=== PATIENT | female | born 1980 | race Caucasian/White ===

== ENCOUNTER → 2016-10-22 | Outpatient (CLI) | payer BC ==
--- NOTE | 2016-10-22 09:26 | DIAGNOSTIC IMAGING REPORT ---
LEFT AXILLARY ULTRASOUND CLINICAL HISTORY: Left axillary pain. COMPARISON STUDY: Left breast/axillary ultrasound 08/05/2016. FINDINGS: There again noted multiple left axillary lymph nodes. The majority of these demonstrate a normal fatty hilum. The dominant lymph node measures 2.2 x 0.7 x 0.8 cm. These lymph nodes are stable to slightly enlarged compared to the prior study. There is also an 11 x 7 x 5 mm hypoechoic nodule/lymph node within the left axilla which demonstrates a biopsy clip. This is overall similar in appearance compared to the prior study. No fluid collections identified within the left axilla. IMPRESSION: 1. Multiple left axillary lymph nodes are again noted. This includes the 11 x 7 x 5 mm hypoechoic nodule/lymph node which has been previously biopsied. The majority of the left axillary lymph nodes are stable to slightly increased in size compared to the prior ultrasound. 2. No fluid collections identified in the left axilla. 3. A 1-2 month ultrasound follow-up at the breast care center is recommended to ensure stability. Electronically signed by: Joe Gates M.D. 10/22/2016 9:24 AM Dictated Date/Time: 10/22/2016 9:19 AM
== END | disposition home or self-care (01) ==
LOC: C.ULTR 08:43
PROVIDERS: ATTEND Family Medicine
DX: M79.622 Pain in left upper arm (principal)

== ENCOUNTER → 2016-11-28 | Outpatient (CLI) | payer BC ==
--- NOTE | 2016-12-01 13:49 | MAMMOGRAPHY REPORT ---
ULTRASOUND OF LEFT BREAST: 11/28/2016 CLINICAL HISTORY: The patient underwent an ultrasound-guided core needle biopsy in the left axilla N 2015 a with pathology yielding a benign lymph node. The patient had left axillary pain arou september, which has since resolved. She had an ultrasound in the emergency Department, for which a short interval follow-up ultrasound was recommended. COMPARISON: Comparison is made to exams dated: 08/20/2016 ultrasound biopsy, 08/05/2016 ultrasound, 07/09/2016 mammogram - [facility], 06/19/2015 ultrasound, and 06/13/2015 mammogram. TECHNIQUE: Real-time targeted ultrasound of the left axilla was performed. FINDINGS: Real-time, high resolution targeted ultrasound was performed of the left axilla. There is a round h ypoechoic circumscribed mass with a biopsy marker clip seen within it, consistent with the previousl y biopsied benign lymph node. This measures 7 x 5 x 6 mm, and is stable to decreased compared to July 2016 exam where the mass measured 9 x 6 mm. Other morphologically normal left axillary l ymph nodes were seen on ultrasound, which are a normal oval shape with normal fatty annette and normal peripheral cortices. No suspicious masses or other suspicious sonographic abnormalities are evident . No suspicious adenopathy is evident. IMPRESSION: ACR BI-RADS CATEGORY 2: BENIGN The previously biopsied left axillary lymph node is stable to decreased in size compared to prior ex ams. No suspicious adenopathy is evident in the left axilla. There is no sonographic evidence of ma lignancy. Recommend clinical follow-up for left axillary pain which has resolved. Also recommend r outine bilateral screening mammograms which are due June 2017. The patient was verbally notified of the results. Yaritza Olivares M.D. ah/:11/28/2016 08:20:52 Attending Technologist: Ariana SANTOS(R)(M), [facility] Construction Project Coordinator: Yaritza Olivares MD, [facility] letter sent: Normal 1/2 BI-RADS Code: ACR BI-RADS Category 2: Benign
== END | disposition home or self-care (01) ==
LOC: C.MAMM 07:51
PROVIDERS: ATTEND Family Medicine
DX: M79.622 Pain in left upper arm (principal)

== ENCOUNTER → 2017-04-09 | Outpatient (CLI) | payer BC ==
--- NOTE | 2017-04-09 12:36 | DIAGNOSTIC IMAGING REPORT ---
MRI OF THE BRAIN WITHOUT CONTRAST CLINICAL HISTORY: M79.629 DIZZINESS COMPARISON STUDY: None. FINDINGS: Sagittal T1, axial diffusion, proton density and T2 weighted axial, coronal FLAIR, and axial T1-weighted images were acquired. No intra or extra-axial mass lesions are visualized There is an equivocal very subtle 2.5 mm focus of restricted water diffusion within the left basal ganglia. There is no evidence of ventricular dilatation. Proton density T2-weighted and FLAIR images reveal a tiny focus of increased FLAIR signal within the left frontal white matter. There are no abnormal flow voids. IMPRESSION: 1. No evidence of intracranial mass 2. Tiny focus of nonspecific increased FLAIR signal within the left frontal white matter 3. Equivocal 2.5 mm focus of restricted water diffusion within the left basal ganglia Electronically signed by: Flakito Schulz M.D. 04/09/2017 12:35 PM Dictated Date/Time: 04/09/2017 12:29 PM
== END | disposition home or self-care (01) ==
LOC: C.MRIBC 11:48
PROVIDERS: ATTEND Family Medicine
DX: R42 Dizziness and giddiness (principal)

== ENCOUNTER → 2017-06-02 | Outpatient (CLI) | payer BC | END | disposition home or self-care (01) | LOC: C.PATHSPEC 14:15 | PROVIDERS: ATTEND Obstetrics & Gynecology | DX: N84.1 Polyp of cervix uteri (principal) ==

== ENCOUNTER → 2017-07-22 | Outpatient (CLI) | payer BC ==
[~2017-07-22] MED LIST: BIOT1TAB7 PO; MULT-506 PO
--- NOTE | 2017-07-23 14:34 | MAMMOGRAPHY REPORT ---
BILATERAL DIGITAL SCREENING MAMMOGRAM TOMOSYNTHESIS WITH CAD: 07/22/2017 CLINICAL HISTORY: Routine screening. TECHNIQUE: Breast tomosynthesis in addition to standard 2D mammography was performed. Current study was also evaluated with a Computer Aided Detection (CAD) system. COMPARISON: Comparison is made to exams dated: 08/20/2016 ultrasound biopsy, 11/28/2016 ultrasound, mammogram - [facility], 06/19/2015 ultrasound, and 06/13/2015 mammogram. BREAST COMPOSITION: The tissue of both breasts is extremely dense, which lowers the sensitivity of m ammography. FINDINGS: No suspicious masses, calcifications, or areas of architectural distortion are noted in ei ther breast. There has been no significant interval change compared to prior exams. IMPRESSION: ACR BI-RADS CATEGORY 1: NEGATIVE There is no mammographic evidence of malignancy. A 1 year screening mammogram is recommended. The pa tient will receive written notification of the results. Approximately 10% of breast cancers are not detected with mammography. A negative mammographic report should not delay biopsy if a clinically suggestive mass is present. Yaritza Olivares M.D. ah/:07/22/2017 16:44:13 Artistic Associate: Ariana SANTOS(R)(M), [facility] letter sent: Normal 1/2 BI-RADS Code: ACR BI-RADS Category 1: Negative
== END | disposition home or self-care (01) ==
LOC: C.MAMM 07:45
PROVIDERS: ATTEND Family Medicine
DX: Z12.31 Encounter for screening mammogram for malignant neoplasm of breast (principal)

== ENCOUNTER → 2017-08-11 | Outpatient (CLI) | payer BC ==
[~2017-08-11] MED LIST changes: +HYDR-5688 PO
--- NOTE | 2017-08-11 15:11 | MAMMOGRAPHY REPORT ---
ULTRASOUND OF BOTH BREASTS: 08/11/2017 CLINICAL HISTORY: Patient has extremely dense breast parenchyma and presents for additional whole jono ast ultrasound screening. COMPARISON: Comparison is made to exams dated: 07/22/2017 mammogram, 11/28/2016 ultrasound, 08/20/2016 ultrasound biopsy, 08/05/2016 ultrasound, 07/09/2016 mammogram - [facility], and ultrasound. FINDINGS: Real-time high-resolution sonographic evaluation was performed through each breast includi ng the retroareolar aspect of the breast as well as the right and left axilla. There are several sca ttered morphologically abnormal lymph nodes identified within each axilla. No focally enlarged lymph node or suspicious lymphadenopathy is identified. Within the breasts, the parenchymal echotexture i s homogeneousdense. No discrete solid or cystic mass is identified. IMPRESSION: ACR BI-RADS CATEGORY 2: BENIGN 1. There is no sonographic evidence of malignancy in the breasts on whole breast screening ultrasoun d. No suspicious axillary adenopathy bilaterally. Continuation of annual screening tomosynthesis mammograms with possible additional whole breast scree elaine ultrasound is recommended. These results and recommendations were discussed with the patient at the time of the exam. Hui Avilez M.D. ay/:08/11/2017 10:19:54 Telecom Assistant: Cora DALLAS)(Manny), [facility] letter sent: Normal 1/2 BI-RADS Code: ACR BI-RADS Category 2: Benign
== END | disposition home or self-care (01) ==
LOC: C.MAMM 09:32
PROVIDERS: ATTEND Family Medicine
DX: R92.2 Inconclusive mammogram (principal)

== ENCOUNTER → 2017-08-14 | Day surgery (SDC) | payer BC ==
[2017-07-30 09:50] VITALS: Ht 167.6 cm; Wt 54.5 kg
[~2017-08-14] VITALS: Ht 167.6 cm; Wt 54.5 kg
[~2017-08-14] MED LIST changes: +ATROPINE SULFATE 0.1 MG/ML 5ML SYR IV PRN; +BUPIVACAINE 0.5 % 5 MG/1 ML MPF 30ML VIAL ONE; +CEFAZOLIN 2000MG IV PUSH 10 ML IV SCH; +DEXAMETHASONE SOD INJ 4 MG/ML VIAL ONE; +EpHEDrine SULFATE INJ 50 MG/ML AMP IV PRN; +FENTANYL CITRATE INJ 50 MCG/1 ML 2 ML VIAL IV PRN; +FENTANYL CITRATE INJ 50 MCG/1 ML 2 ML VIAL ONE; +HYDROCODONE/ACETAMOPHEN 5/325MG TAB PO PRN; +HYDROmorphone INJ 1 MG/ML SYR IV PRN; +LACTATED RINGER'S 1000ML 1,000 ML IV SCH; +LIDOCAINE HCL 2% 2 ML VIAL (20MG/ML) ONE; +MIDAZOLAM HCL 1 MG/ML 2ML VIAL ONE; +ONDANSETRON INJ 2 MG/ML 2 ML VIAL IV PRN; +ONDANSETRON INJ 2 MG/ML 2 ML VIAL ONE; +PROMETHAZINE HCL INJ 12.5 MG in SODIUM CHLORIDE 0.9% 50ML 50 ML IV PRN; +PROPOFOL IV EMULSION 10 MG/ML 20 ML VIAL IV ONE; +SODIUM CHLORIDE 0.9% 1000ML 1,000 ML IV SCH
--- NOTE | 2017-08-14 06:48 | History & Physical Bridge Note ---
H&P Re-Evaluation Bridge Note: I have examined the patient, reviewed the History & Physical and in the interval since the performance of the History & Physical I have noted the following changes of clinical significance: No changes noted
--- NOTE | 2017-08-14 07:02 | Discharge Instructions-SurgCtr ---
Discharge Instructions Date of Service Aug 14, 2017. Visit Reason for Visit: Umbilical Hernia Discharge Discharge Diagnosis / Problem: umbilical hernia Discharge Goals Goal(s): Decrease discomfort, Improve function, Improve disease control Activity Recommendations Activity Limitations: as noted below Lifting Limitations: no more than 25 pounds Exercise/Sports Limitations: until after follow-up appointment May Resume Sexual Activity: when tolerated Shower/Bathe: tomorrow SPECIAL CARE INSTRUCTIONS: * Cover incisions and change daily for comfort/drainage. * leave steri strips in place * May use ibuprofen for pain as tolerated. * Expect some swelling and bruising. Call your doctor if: * Temperature above 101 degrees * Pain not relieved by pain medicine ordered * There is increased drainage or redness from any incision * You have any unanswered questions or concerns [phone]. FOLLOW UP VISIT: If not already scheduled, please call the office for a follow-up visit. for 2 weeks- no sutures to remove OFFICE PHONE NUMBER: Dr. Lewis Office Anesthesia . Post Anesthesia Instructions: If you have had General Anesthesia or IV Sedation: * Do not drive today. * Resume driving when surgeon permits. * Do not make important decisions or sign legal documents today. * Call surgeon for: 1. Temperature elevations greater than 101 degrees F. 2. Uncontrollable pain. 3. Excessive bleeding. 4. Persistent nausea and vomiting. 5. Medication intolerance (nausea, vomiting or rash). * For nausea and vomiting use only clear liquids such as: tea, soda, bouillon until nausea subsides, then gradually increase diet as tolerated. * If you have any concerns or questions, call your surgeon's office. If physician is unavailable and it is an emergency, call 911 or go to the nearest emergency room. . Diet Recommendations Home Diet: resume previous diet Pending Studies Studies pending at discharge: no Medical Emergencies . Who to Call and When: Medical Emergencies: If at any time you feel your situation is an emergency, please call 911 immediately. . Non-Emergent Contact Non-Emergency issues call your: Primary Care Provider, Surgeon . . "Provider Documentation" section prepared by Martín Lewis. .
--- NOTE | 2017-08-14 07:43 | [facility] Operative Report ---
Operative Report Operative Date Aug 14, 2017. Pre-Operative Diagnosis Umbilical Hernia Post-Operative Diagnosis same as preop Procedure(s) Performed Umbilial Hernia Open Repair Surgeon Dr. Lewis Bioinformatics Developer Surgeon(s) GELA Hamlin Estimated Blood Loss 5ml Findings 1 cm hernia defect Specimens none per surgeon Complication(s) None Disposition Recovery Room / PACU I attest to the content of the Intraoperative Record and any orders documented therein. Any exceptions are noted below.
--- NOTE | 2017-08-14 07:54 | OPERATIVE REPORT ---
DATE OF OPERATION: 08/14/2017 NAME OF OPERATION: Open umbilical hernia repair. PREOPERATIVE DIAGNOSIS: Umbilical hernia. POSTOPERATIVE DIAGNOSIS: Same. STAFF SURGEON: Martín Lewis MD. RELIGION PROFESSOR: Lang Isidro PA-C. ANESTHESIA: General LMA. DESCRIPTION OF PROCEDURE: The patient was brought in the operating room and placed on the operating table in supine position. Her abdomen was prepped and draped in usual fashion. Using 0.5% plain Marcaine, skin and subcutaneous tissue were anesthetized, incision made just below the edge of the umbilicus, carrying dissection down, entering the hernia sac which contained preperitoneal adipose tissue which was reduced. The umbilicus was dissected away from the fascia. Then the defect which was approximately 1 cm in diameter was closed using interrupted 0 Ethibond suture. Subcutaneous tissue was reapproximated using 4-0 chromic suture and the umbilicus was reattached to the fascia using 2-0 chromic catgut suture. Then the skin reapproximated using subcuticular 5-0 Monocryl and Steri-Strips. Dressing applied and patient transferred to recovery room in stable condition. My business support assistant helped me in the entire case with prepping and draping as well as making incision and retracting to expose the hernia for repair and also helping with closure. I attest to the content of the Intraoperative Record and any orders documented therein. Any exception s are noted below.
[2017-08-14 08:44] VITALS: TEMP 37.4
[2017-08-14 09:02] VITALS: BP 128/80; PULSE 75; O2SAT 100
--- NOTE | 2017-08-14 09:08 | Anesthesia Progress Nt - [facility] ---
Anesthesia Post Op Note Date & Time Aug 14, 2017 at 09:08 Vital Signs Pain Intensity: 0 Vital Signs Past 12 Hours Date Time Temp Pulse Resp B/P (MAP) Pulse Ox O2 Delivery O2 Flow Rate FiO2 08/14/17 09:02 75 16 128/80 (96) 100 Room Air 08/14/17 08:44 37.4 71 16 114/76 (89) 100 Room Air 08/14/17 08:35 36.5 112/73 (81) 08/14/17 08:33 72 17 08/14/17 08:33 71 17 100 08/14/17 08:30 114/75 (87) 08/14/17 08:28 72 15 100 08/14/17 08:28 72 15 08/14/17 08:28 Room Air 08/14/17 08:25 113/74 (81) 08/14/17 08:23 86 17 08/14/17 08:23 89 17 100 08/14/17 08:20 106/68 (73) 08/14/17 08:18 65 18 08/14/17 08:18 64 18 100 08/14/17 08:15 109/71 (82) 08/14/17 08:13 65 17 08/14/17 08:13 65 17 100 08/14/17 08:10 109/69 (74) 08/14/17 08:08 66 16 100 08/14/17 08:08 66 16 08/14/17 08:05 110/71 (76) 08/14/17 08:03 77 15 100 08/14/17 08:03 79 15 08/14/17 08:00 110/74 (82) 08/14/17 07:58 67 8 08/14/17 07:58 66 8 100 08/14/17 07:50 36.8 100 10 116/77 100 Mask 6 08/14/17 06:28 36.7 71 16 136/89 (105) 100 Room Air Notes Mental Status: alert / awake / arousable, participated in evaluation Pt Amnestic to Procedure: Yes Nausea / Vomiting: adequately controlled Pain: adequately controlled Airway Patency, RR, SpO2: stable & adequate BP & HR: stable & adequate Hydration State: stable & adequate Anesthetic Complications: no major complications apparent Awake, doing well, VSS. Ready for d/c
== END | disposition home or self-care (01) ==
LOC: X.SURG 06:06
PROVIDERS: ATTEND Surgery
DX: K42.9 Umbilical hernia without obstruction or gangrene (principal)

== ENCOUNTER → 2018-01-22 | Outpatient (CLI) | payer OTHER ==
[~2018-01-22] MED LIST changes: -ATROPINE SULFATE 0.1 MG/ML 5ML SYR IV PRN; -BUPIVACAINE 0.5 % 5 MG/1 ML MPF 30ML VIAL ONE; -CEFAZOLIN 2000MG IV PUSH 10 ML IV SCH; -DEXAMETHASONE SOD INJ 4 MG/ML VIAL ONE; -EpHEDrine SULFATE INJ 50 MG/ML AMP IV PRN; -FENTANYL CITRATE INJ 50 MCG/1 ML 2 ML VIAL IV PRN; -FENTANYL CITRATE INJ 50 MCG/1 ML 2 ML VIAL ONE; -HYDROCODONE/ACETAMOPHEN 5/325MG TAB PO PRN; -HYDROmorphone INJ 1 MG/ML SYR IV PRN; -LACTATED RINGER'S 1000ML 1,000 ML IV SCH; -LIDOCAINE HCL 2% 2 ML VIAL (20MG/ML) ONE; -MIDAZOLAM HCL 1 MG/ML 2ML VIAL ONE; -ONDANSETRON INJ 2 MG/ML 2 ML VIAL IV PRN; -ONDANSETRON INJ 2 MG/ML 2 ML VIAL ONE; -PROMETHAZINE HCL INJ 12.5 MG in SODIUM CHLORIDE 0.9% 50ML 50 ML IV PRN; -PROPOFOL IV EMULSION 10 MG/ML 20 ML VIAL IV ONE; -SODIUM CHLORIDE 0.9% 1000ML 1,000 ML IV SCH
--- NOTE | 2018-01-22 11:35 | DIAGNOSTIC IMAGING REPORT ---
THYROID ULTRASOUND CLINICAL HISTORY: Throat pain. COMPARISON STUDY: None. TECHNIQUE: Sonography of the thyroid gland was performed. FINDINGS: The right thyroid lobe measures 3.6 x 1.5 x 1 cm and the left thyroid lobe measures 4.4 x 2.3 x 2.4 cm. Note is made of a 9 mm hypoechoic isthmus nodule. The gland is heterogeneous, particularly the left lobe. Note is made of a hypoechoic focus that occupies the majority of the left thyroid lobe, measuring approximately 4 cm in craniocaudal dimension. It's unclear whether this represents a dominant left lobe nodule or heterogeneous thyroid parenchyma. Note is made of several prominent central compartment lymph nodes. IMPRESSION: 1. Hypoechoic focus that occupies the majority of the left thyroid lobe. It is not clear whether this represents a dominant nodule or heterogeneous thyroid parenchyma in the setting of thyroiditis. Ultrasound-guided fine needle aspiration is recommended given the possibility of a dominant nodule. 2. Heterogeneous, mildly enlarged thyroid gland with prominent central compartment lymph nodes. This may reflect thyroiditis. Electronically signed by: Isaiah Reis M.D. 01/22/2018 11:33 AM Dictated Date/Time: 01/22/2018 11:29 AM
== END | disposition home or self-care (01) ==
LOC: C.ULTR 10:50
PROVIDERS: ATTEND Student in an Organized Health Care Education/Training Program
DX: R07.0 Pain in throat (principal)